=== PATIENT | female | born 1970 | race Caucasian/White ===

== ENCOUNTER → 2020-04-17 | Day surgery (SDC) | payer SELFPAY ==
[2020-04-16 11:55] VITALS: BMI 28.3
== END ==
LOC: ORWHC2ENDO 08:42
PROVIDERS: ATTEND Internal Medicine
DX: Z53.8 Procedure and treatment not carried out for other reasons (principal)

== ENCOUNTER 2021-07-05 10:21 | Day surgery (SDC) | payer OTHER ==
[2021-07-02 11:12] VITALS: BMI 29.2
[~2021-07-05 10:21] MED LIST: LACTATED RINGERS 1,000 ML IV SCH; LIDOCAINE 1% (10MG/ML) FOR IV START INTRADERMA PRN
[2021-07-05 10:47] VITALS: TEMP 97.4
[2021-07-05] MEDS ORDERED: PROPOFOL 10 MG/ML 20 ML VIAL IV ONE (12:32)
[2021-07-05] MEDS ORDERED: LACTATED RINGERS 1,000 ML IV ONE ×2 (12:52)
[2021-07-05] MEDS ORDERED: IV FLUID CONTINUATION 1,000 ML IV ONE (12:52)
[2021-07-05] MEDS ORDERED: IV FLUID CONTINUATION 900 ML IV ONE (12:52)
--- NOTE | 2021-07-05 12:55 | P.PCN ---
Date of Procedure: 07/05/21 Procedure(s) Performed: BRIEF HISTORY: Patient is a 50-year-old pleasant female scheduled for an elective colonoscopy as a part of screening for colorectal neoplasia. PROCEDURE PERFORMED: Colonoscopy with snare polypectomy. PREOPERATIVE DIAGNOSIS: Screening for colon cancer. IV sedation per Anesthesia. PROCEDURE: After informed consent was obtained, the patient, was brought into the endoscopy unit. IV sedation was administered by Anesthesia under continuous monitoring. Digital rectal examination was normal. Initially the Olympus CF-160 flexible video colonoscope was then inserted in the rectum, gradually advanced into the cecum without any difficulty. Careful examination was performed as the scope was gradually being withdrawn. Ileocecal valve and the appendiceal orifice were visualized and appeared normal. Prep was excellent. Mucosa of the cecum, ascending colon, transverse colon, descending colon, sigmoid colon, and rectum appeared normal. In the distal sigmoid colon there was a 5 limited polyp that was removed by snare polypectomy. Retroflexion was performed in the rectum and no lesions were seen. The patient tolerated the procedure well. IMPRESSION: 5 mm distal sigmoid colon polyp status post polyp Rest of the colon appeared normal. RECOMMENDATIONS: Findings of this examination were discussed with the patient as well as his family. She was advised to follow with the biopsy results. If the biopsy revealed adenoma she can have a repeat colonoscopy in 5 years
[2021-07-05 13:19] VITALS: BP 124/78; PULSE 78; RESP 18
== END 2021-07-05 13:25 | disposition home or self-care (01) ==
LOC: ORWHC2ENDO 10:21
PROVIDERS: ATTEND Internal Medicine Gastroenterology
DX: Z12.11 Encounter for screening for malignant neoplasm of colon (principal); D12.5 Benign neoplasm of sigmoid colon
CPT/HCPCS: 45385; 88305; J2704